=== PATIENT | male | born 1980 | race Caucasian/White ===

== ENCOUNTER 2018-06-12 22:43 | Emergency (ER) | payer OTHER, SELFPAY ==
[2018-06-12 22:45] VITALS: BP 131/89; PULSE 70; RESP 17; TEMP 37.3; O2SAT 100
--- NOTE | 2018-06-12 23:49 | DI.CT.S_ITS ---
PROCEDURE: CT CERVICAL SPINE WO CON INDICATIONS: pain TECHNIQUE: Noncontrast 3 mm thick sections acquired from the skull base to the T4 level. Sagittal and coronal reformats were then constructed. For radiation dose reduction, the following was used: automated exposure control, adjustment of mA and/or kV according to patient size. COMPARISON: None. FINDINGS: Image quality: Excellent. Bones: There is straightening and mild reversal of normal cervical lordosis. No acute compression fracture or spondylolisthesis. Vertebral body heights and intervertebral disc spaces are fairly well-preserved. Very mild degenerative endplate changes are noted at C5-6 level. There is suggestion of mild degenerative disc bulge at C5-6 and C6-7 levels with mild central canal stenosis, no significant neural foramina narrowing. Visualized superior ribs are intact. Soft tissues: Prevertebral soft tissues are normal in thickness. No paravertebral hematomas. No apical pneumothoraces. IMPRESSION: No cervical spine fracture or spondylolisthesis. Very mild degenerative disc disease at C5-6 and C6-7 levels. Dictated by: Percy Matamoros M.D. on 06/13/2018 at 8:54 Approved by: Percy Matamoros M.D. on 06/13/2018 at 8:56
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
[2018-06-13] MEDS: diazePAM 5 MG TABLET PO (01:13)
[2018-06-13] MEDS: HYDROCODONE/ACET 5/325 PREPACK 1 BOTTLE MISC (01:14)
[2018-06-13 01:16] VITALS: BP 136/83; PULSE 78; RESP 14; TEMP 37.1; O2SAT 100
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
== END 2018-06-13 01:25 | disposition home or self-care (01) ==
PROVIDERS: Emergency Provider Emergency Medicine; Family Provider Physician Assistant; PCP Physician Assistant
DX: M62.838 Other muscle spasm (principal); V49.40XA Driver injured in collision with unspecified motor vehicles in traffic accident, initial encounter
CPT/HCPCS: 72125; 99283; 99284

== ENCOUNTER → 2024-04-05 13:13 | Outpatient (CLI) | payer OTHER, SELFPAY ==
--- NOTE | 2024-04-05 13:15 | DI.RAD.S_ITS ---
PROCEDURE: [place] HIP INJECTION MR/CT LT INDICATIONS: Left hip pain TECHNIQUE: The indications, alternatives, benefits, risks, and complications of the procedure were explained to the patient. Written informed consent was obtained and placed in the chart. The hip was examined fluoroscopically with the legs fixed in slight internal rotation, and a site for needle placement chosen for entry into the hip joint from an anterior approach. Care was taken to locate the common femoral artery and vein beforehand. The skin was prepped and draped in a sterile fashion, and 1% Lidocaine infiltrated from skin down to joint capsule. A spinal needle was inserted into the joint, and a small amount of iodinated contrast media injected to confirm intra-articular placement of the needle tip. This was followed by approximately 10 mL dilute solution of a gadolinium containing MR contrast agent. The needle was removed and a dressing was applied. The patient was given postprocedural instructions and sent to the MR suite for imaging. COMPARISON: [facility], , MR HIP LT W CON, 04/05/2024, 14:19. FINDINGS: A single fluoroscopic spot image demonstrates intra-articular location of injected iodinated contrast. IMPRESSION: Successful fluoroscopically guided administration of dilute Gadolinium solution into the hip joint for MR arthrogram. Dictated by: Sanket Soriano M.D. on 04/05/2024 at 20:28 Approved by: Sanket Soriano M.D. on 04/05/2024 at 20:28
--- NOTE | 2024-04-05 13:16 | DI.MRI.S_ITS ---
PROCEDURE: MR HIP LT W CON INDICATIONS: Left hip pain TECHNIQUE: After the administration of 10 mL of dilute intra-articular Gadolinium contrast, coronal STIR of the bony pelvis; coronal and oblique axial T1 spin echo with fat saturation, axial T2 fast spin echo with fat saturation, sagittal T1 spin echo with and without fat saturation of the involved hip. COMPARISON: [facility], , [place] HIP INJECTION MR/CT LT, 04/05/2024, 13:04. FINDINGS: Image quality: Excellent. Bones and joints: Bone marrow of the pelvic ring and proximal femurs show normal signal throughout. No intraosseous lesions or fractures. No avascular necrosis of the femoral head. Disc desiccation and facet hypertrophy are seen in the included spine. Tendons and ligaments: The gluteus medius and minimus tendons demonstrate moderate tendinosis at the distal insertions. The proximal iliotibial band appears intact. The iliopsoas tendon appears intact, without adjacent bursal fluid collections. The origin of the hamstring tendon is intact at the ischial tuberosity. The tendons for the direct and indirect heads of the rectus femoris muscle appear intact. Labrum and cartilage: Focal uptake of articular contrast material is seen at the posterior superior labrum that is suspicious for nondisplaced tearing. Cartilage surface of the femoral head appears of normal thickness. Asphericity of the femoral head is seen with an osseous protuberance at the anterior superior head/neck junction, which can be seen in the setting of cam-type femoroacetabular impingement. Soft tissues: Visualized muscles demonstrate normal bulk and internal signal. Quadratus femoris muscle demonstrates no internal edema to suggest ischiofemoral impingement. The proximal sciatic neurovascular bundle appears normal adjacent to the hamstring tendons. Pelvic soft tissues demonstrate no acute abnormality. Small fat containing left inguinal hernia versus spermatic cord lipoma. IMPRESSION: 1. Small nondisplaced tear at the posterior superior left acetabular labrum. 2. Asphericity of the femoral head is seen with an osseous protuberance at the anterior superior head/neck junction, which can be seen in the setting of cam-type femoroacetabular impingement. 3. Moderate distal gluteus medius and minimus tendinosis. 4. Mild degenerative changes in the included spine. Approved by: Austin Hodgson M.D. on 04/06/2024 at 11:48
[2024-04-05] MEDS: LIDOCAINE 1% 20 ML INJ (14:37)
[2024-04-05] MEDS: SODIUM CHLORIDE 0.9 % 20 ML VIAL IV (14:38)
== END ==
PROVIDERS: Referring Provider Student in an Organized Health Care Education/Training Program; Visit Provider Student in an Organized Health Care Education/Training Program
DX: S73.102A Unspecified sprain of left hip, initial encounter (principal); M25.552 Pain in left hip
CPT/HCPCS: 27093; 73525; 73722; A9579; Q9967